=== PATIENT | female | born 1965 | race Caucasian/White ===

== ENCOUNTER 2017-08-07 18:03 | Emergency (ER) | payer BC ==
[2017-08-07 18:12] VITALS: BP 116/66
--- NOTE | 2017-08-07 18:28 | UC ---
Skin Complaint HPI - HPI Summary HPI Summary: small tick on left clavical she noticed in the shower this morning-removed it her self with tweezer may have been attached for over 24 hours - History of Current Complaint Chief Complaint: UCSkin Time Seen by Provider: 08/07/17 18:21 Stated Complaint: TICK BITE Hx Obtained From: Patient Hx Last Menstrual Period: FELIPE MENOPAUSAL ?: No Onset/Duration: Sudden Onset, Lasting Hours - over 24 doesnot believe in was over 26 hours Timing: Constant Current Severity: None Location: Discrete - left clavicle Aggravating Factor(s): Nothing Alleviating Factor(s): Nothing Associated Signs & Symptoms: Positive: Negative Related History: Insect Bite/Sting - Allergy/Home Medications Allergies/Adverse Reactions: Allergies Allergy/AdvReac Type Severity Reaction Status Date / Time Hydrocodone Allergy Intermediate Nausea Verified 09/16/16 16:42 Amoxicillin [From Augmentin] Allergy Hives Verified 08/07/17 18:13 Benzonatate [From Tessalon] Allergy Rash And Verified 09/19/16 07:11 Itching Clavulanic Acid Allergy Hives Verified 08/07/17 18:13 [From Augmentin] Fluticasone [From Flonase] Allergy Rash And Verified 09/19/16 07:11 Itching Sulfamethoxazole Allergy Rash And Verified 09/19/16 07:11 w/Trimethoprim Itching [From Bactrim] Review of Systems Constitutional: Negative Skin: Negative Eyes: Negative ENT: Negative Respiratory: Negative Cardiovascular: Negative Gastrointestinal: Negative Genitourinary: Negative Motor: Negative Neurovascular: Negative Musculoskeletal: Negative Neurological: Negative Psychological: Negative Is Patient Immunocompromised?: No All Other Systems Reviewed And Are Negative: Yes PMH/Surg Hx/FS Hx/Imm Hx Previously Healthy: Yes - Surgical History Surgical History: Yes Surgery Procedure, Year, and Place: [place] teeth extraction at age 16 - Family History Known Family History: Positive: Cardiac Disease - [place], Other - breast cancer Negative: Blood Disorder - Social History Occupation: Employed Full-time Lives: With Family Alcohol Use: Weekly Alcohol Amount: one drink a week Substance Use Type: None Smoking Status (MU): Former Smoker Length of Time of Smoking/Using Tobacco: 10 years When Did the Patient Quit Smoking/Using Tobacco: Age 22 - Immunization History Most Recent Influenza Vaccination: never gets it Most Recent Tetanus Shot: up to date per patient Most Recent Pneumonia Vaccination: never Physical Exam Triage Information Reviewed: Yes Appearance: Well-Appearing, No Pain Distress, Well-Nourished Vital Signs: Initial Vital Signs Temp 99.3 F 08/07/17 18:09 Pulse 66 08/07/17 18:09 Resp 18 08/07/17 18:09 BP 116/66 08/07/17 18:09 Pulse Ox 100 08/07/17 18:09 Vital Signs Reviewed: Yes Eye Exam: Normal Eyes: Positive: Conjunctiva Clear ENT Exam: Normal ENT: Positive: Normal ENT inspection, Hearing grossly normal. Negative: Nasal congestion, Nasal drainage, Trismus, Muffled/hoarse voice Dental Exam: Normal Neck exam: Normal Neck: Positive: Supple, Nontender, No Lymphadenopathy Respiratory Exam: Normal Respiratory: Positive: Chest non-tender, Lungs clear, Normal breath sounds, No respiratory distress, No accessory muscle use Cardiovascular Exam: Normal Cardiovascular: Positive: RRR, No Murmur, Pulses Normal, Brisk Capillary Refill Musculoskeletal Exam: Normal Musculoskeletal: Positive: Strength Intact, ROM Intact, No Edema Neurological Exam: Normal Neurological: Positive: Alert, Muscle Tone Normal Psychological Exam: Normal Skin Exam: Normal Course/Dx - Course Course Of Treatment: Doxycycine 200mg times 1 now, be observent for s/s of Lyme disease-follow with pcp - Differential Diagnoses - Skin Complaint Differential Diagnoses: Tick Born Illness - Diagnoses Provider Diagnoses: Lyme PEP Discharge - Discharge Plan Condition: Stable Disposition: HOME Patient Education Materials: Tick Bite (ED) Referrals: Adan Javier MD [Primary Care Provider] - If Needed
[2017-08-07] MEDS ORDERED: DOXYcycline CAP(*) 100 MG PO ONE (18:29)
== END 2017-08-07 18:40 | disposition home or self-care (01) ==
LOC: UCEAST 18:03
DX: S40.262A Insect bite (nonvenomous) of left shoulder, initial encounter (principal); W57.XXXA Bitten or stung by nonvenomous insect and other nonvenomous arthropods, initial encounter; Y93.9 Activity, unspecified; Y92.9 Unspecified place or not applicable; Z88.1 Allergy status to other antibiotic agents; Z88.5 Allergy status to narcotic agent; Z88.2 Allergy status to sulfonamides; Z88.8 Allergy status to other drugs, medicaments and biological substances; Z87.891 Personal history of nicotine dependence
CPT/HCPCS: 99212; A9270-GY; G0463

== ENCOUNTER 2018-04-02 12:33 | Emergency (ER) | payer BC ==
--- NOTE | 2018-04-02 13:23 | UC ---
Complaint Female HPI - HPI Summary HPI Summary: Patient is a 52-year-old otherwise healthy perimenopausal female presenting to the with chief complaint of left-sided swollen lymph nodes to the groin area , left-sided labial erythema with some swelling with mild amount of itching, diffuse low back pain yesterday which has improved today, and low-grade temp 101.1 at home. She endorses unprotected sex with new partner 4 months ago but last encounter was over 6 weeks ago. History of STDs years ago, but none recently. Recently tested for HIV and negative. Symptoms began 2 days ago and have remained constant. Aggravated by nothing and alleviated with nothing. She has been taking ibuprofen and Tylenol for fever, without relief of symptoms. 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 Denies any burning, urgency, frequency with urination. She gets an annual through her [employer] yearly with no abnormal findings. Patient is a former smoker and occasionally drinks ETOH. No drug use. - History Of Current Complaint Chief Complaint: UCGU Stated Complaint: PERSONAL Time Seen by Provider: 04/02/18 12:51 Hx Obtained From: Patient Hx Last Menstrual Period: FELIPE MENOPAUSAL ?: No Onset/Duration: Sudden Onset Timing: Constant Severity Initially: Mild Severity Currently: Mild Pain Intensity: 1 Pain Scale Used: 0-10 Numeric Character: Not Applicable Aggravating Factor(s): Nothing Alleviating Factor(s): Nothing Associated Signs And Symptoms: Positive: Genital Swelling - labia majora with mild swelling and erythema - Risk Factors Ectopic Risk Factor: Negative Ovarian Torsion Risk Factor: Reproductive Age - Allergies/Home Medications Allergies/Adverse Reactions: Allergies Allergy/AdvReac Type Severity Reaction Status Date / Time amoxicillin [From Augmentin] Allergy Hives Verified 04/02/18 12:45 benzonatate Allergy Rash And Verified 04/02/18 12:45 [From Tessalon Perles] Itching clavulanic acid Allergy Hives Verified 04/02/18 12:45 [From Augmentin] fluticasone [From Flonase] Allergy Rash And Verified 04/02/18 12:45 Itching hydrocodone Allergy Nausea And Verified 04/02/18 12:45 Vomiting Sulfa (Sulfonamide Allergy Rash And Verified 04/02/18 12:45 Antibiotics) Itching PMH/Surg Hx/FS Hx/Imm Hx Previously Healthy: Yes - Surgical History Surgical History: Yes Surgery Procedure, Year, and Place: [place] teeth extraction at age 16 - Family History Known Family History: Positive: Cardiac Disease - [place], Other - breast cancer Negative: Blood Disorder - Social History Occupation: Employed Full-time Lives: Alone Alcohol Use: Occasionally Alcohol Amount: one drink a week Substance Use Type: None Smoking Status (MU): Former Smoker Length of Time of Smoking/Using Tobacco: 10 years When Did the Patient Quit Smoking/Using Tobacco: Age 22 - Immunization History Most Recent Influenza Vaccination: never gets it Most Recent Tetanus Shot: up to date per patient Most Recent Pneumonia Vaccination: never Review of Systems Constitutional: Fever, Chills, Fatigue Skin: Other - erythema and swelling to the L labia majora Respiratory: Negative Cardiovascular: Negative Gastrointestinal: Negative Genitourinary: Vaginal/Penile Itching - left labia Motor: Negative Neurovascular: Negative Neurological: Negative Psychological: Negative Is Patient Immunocompromised?: No All Other Systems Reviewed And Are Negative: Yes Physical Exam Triage Information Reviewed: Yes Appearance: Ill-Appearing - diaphoretic, Thin Vital Signs: Initial Vital Signs Temp 99.7 F 04/02/18 12:38 Pulse 94 04/02/18 12:38 Resp 18 04/02/18 12:38 BP 116/64 04/02/18 12:38 Pulse Ox 100 04/02/18 12:38 Vital Signs Reviewed: Yes Eye Exam: Normal Neck: Positive: Supple, No Lymphadenopathy, Enlarged Nodes @ - Left inguinal without evidence of hernia Respiratory: Positive: Lungs clear, Normal breath sounds Cardiovascular: Positive: RRR, No Murmur Pelvic Exam: Positive: Speculum Exam Normal, No Masses, Lesions - erythema with slight swelling to the L labia majora. Negative: Cervicitis Musculoskeletal Exam: Normal Musculoskeletal: Positive: Strength Intact Neurological Exam: Normal Neurological: Positive: Alert Psychological Exam: Normal Skin Exam: Normal Complaint Female Dx - Course Course Of Treatment: On arrival, patient is 99.7, normal respirations, normal heart rate and other vital signs stable. Discussed obtaining swabs for STDs, bacterial vaginosis and yeast. I have explained to the patient we do not have the ability for lab work. On physical examination, left sided groin enlarged LN. No enlarged LN to the right groin. No abdominal pain in all quadrants on deep palpation. No CVA tenderness bilaterally. On pelvic examination, there is left labial erythema and slight swelling with no evidence of abscess, vesicles or other open lesions. Patient states the area was pruritic yesterday , but feels improved today. Speculum examination reveals no copious discharge of color, no signs of yeast infection and no vaginal bleeding. She denies any pain with the speculum examination. Swabs obtained for GC/chlamydia and affirm. I have offered HIV testing, but patient declines stating she recently was tested and results were negative. UA obtained and WNL other than trace blood. Patient states she begins to feel warm again and vital signs are rechecked. Vital signs on recheck her heart rate 100, 99% on room air, resp 22 , 120/66, and temp is ranging between 103.6 and 104.2. At this time, I have suggested going to the ED for higher level of care. Patient is agreeable to this and will go directly from here to the ED. She declines ambulance. - Differential Dx/Diagnosis Differential Diagnosis/HQI/PQRI: Cervicitis, Pelvic Inflammatory Disease, Urinary Tract Infection Provider Diagnoses: Fever Discharge - Sign-Out/Discharge Documenting (check all that apply): Discharge/Admit/Transfer - Discharge Plan Condition: Stable Disposition: HOME Referrals: Adan Javier MD [Primary Care Provider] - Additional Instructions: Go directly to the ED - Billing Disposition and Condition Condition: STABLE Disposition: HOME
[2018-04-02 13:29] VITALS: BP 120/66
[2018-04-02] MEDS ORDERED: Acetaminophen TAB* 325 MG PO ONE (13:37)
== END 2018-04-02 13:44 | disposition home or self-care (01) ==
LOC: UCEAST 12:33
DX: R50.9 Fever, unspecified (principal); R59.9 Enlarged lymph nodes, unspecified; Z88.1 Allergy status to other antibiotic agents; Z88.5 Allergy status to narcotic agent; Z88.0 Allergy status to penicillin; Z88.2 Allergy status to sulfonamides; Z88.8 Allergy status to other drugs, medicaments and biological substances; Z82.49 Family history of ischemic heart disease and other diseases of the circulatory system; Z80.3 Family history of malignant neoplasm of breast; Z87.891 Personal history of nicotine dependence
CPT/HCPCS: 81003; 87480; 87491; 87510; 87591; 87661; 99213; A9270-GY; G0463

== ENCOUNTER 2018-04-02 14:03 | Emergency (ER) | payer BC ==
[2018-04-02] MEDS ORDERED: NS 0.9% 1000 ML*IV.FLUID IV ONE (15:50)
[2018-04-02 15:58] LABS: ABS Basophils 0 10^3/ul (0-0.2); ABS Eosinophils 0 10^3/ul (0-0.6); ABS Lymphocytes 0.8 10^3/ul (1.0-4.8); ABS Monocytes 0.4 10^3/ul (0-0.8); ABS Neutrophils 4.4 10^3/ul (1.5-7.7); ABS Nucleated RBC 0 10^3/ul; Eosinophil % 0.2 % (0-6); Hematocrit 41 % (35-47); Hemoglobin 13.9 g/dl (12.0-16.0); Lymphocyte % 14.3 % (25-47); Mean Corpuscular HGB Conc 34 g/dl (31-36); Mean Corpuscular Hemoglobin 31 pg (27-31); Mean Corpuscular Volume 92 fL (80-97); Mean Platelet Volume 10.2 um3 (7.4-10.4); Nucleated Red Blood Cells % 0.2; Platelet Count 160 10^3/ul (150-450); Red Blood Count 4.44 10^6/ul (4.0-5.4); Red Cell Distribution Width 13 % (10.5-15); White Blood Count 5.6 10^3/ul (3.5-10.8)
[2018-04-02 16:08] LABS: INR 0.95 (0.77-1.02)
[2018-04-02] MEDS ORDERED: DOXYcycline CAP(*) 100 MG PO ONE (16:31)
[2018-04-02 18:41] VITALS: BP 106/62
--- NOTE | 2018-04-15 06:09 | ED ---
Skin Complaint - HPI Summary HPI Summary: Pt here w/ Lt labial redness, swelling over the past few days. Fever. 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 She denies any pain or irritation in this area that she would expect from riding her bicycle. She also denies dysuria, urinary frequency, flank pain , abdominal pain, nausea, vomiting, abdominal pain/pelvic pain, vaginal irritation or discharge. States she has not been sexually active in quite a while. She is outdoors quite a bit but denies unwitnessed tick bite in this area - may have had tick bites in the past. Denies headache, joint stiffness, chest pain, palpitations, numbness, tingling, weakness, headaches. - History of Current Complaint Chief Complaint: EDOBProblems Time Seen by Provider: 04/02/18 15:43 Stated Complaint: TRANSFER FROM /FEELING FAINT Hx Obtained From: Patient Hx Last Menstrual Period: FELIPE MENOPAUSAL Pain Intensity: 0 Pain Scale Used: 0-10 Numeric - Allergy/Home Medications Allergies/Adverse Reactions: Allergies Allergy/AdvReac Type Severity Reaction Status Date / Time amoxicillin [From Augmentin] Allergy Hives Verified 04/02/18 14:16 benzonatate Allergy Rash And Verified 04/02/18 14:16 [From Tessalon Perles] Itching clavulanic acid Allergy Hives Verified 04/02/18 14:16 [From Augmentin] fluticasone [From Flonase] Allergy Rash And Verified 04/02/18 14:16 Itching hydrocodone Allergy Nausea And Verified 04/02/18 14:16 Vomiting Sulfa (Sulfonamide Allergy Rash And Verified 04/02/18 14:16 Antibiotics) Itching PMH/Surg Hx/FS Hx/Imm Hx Previously Healthy: Yes Endocrine/Hematology History: Denies: Hx Anticoagulant Therapy, Hx Blood Disorders, Hx Diabetes, Hx Thyroid Disease Cardiovascular History: Reports: Hx Angina Denies: Hx Coronary Artery Disease, Hx Hypercholesterolemia, Hx Hypertension , Hx Myocardial Infarction, Hx Pacemaker/ICD, Hx Valvular Heart Disease Respiratory History: Denies: Hx Asthma, Hx Chronic Obstructive Pulmonary Disease (COPD) GI History: Denies: Hx Ulcer Sensory History: Reports: Hx Hearing Aid - will remove Psychiatric History: Denies: Hx Panic Disorder - Cancer History Hx Chemotherapy: No Hx Radiation Therapy: No - Surgical History Surgery Procedure, Year, and Place: [place] teeth extraction at age 16 - Immunization History Date of Tetanus Vaccine: PT STATES UNSURE Date of Influenza Vaccine: NONE Infectious Disease History: No Infectious Disease History: Denies: Hx Clostridium Difficile, Hx Hepatitis, Hx Human Immunodeficiency Virus (HIV), Hx of Known/Suspected MRSA, Hx Shingles, Hx Tuberculosis, Hx Known/ Suspected VRE, Hx Known/Suspected VRSA, History Other Infectious Disease, Traveled Outside the [place] in Last 30 Days - Family History Known Family History: Positive: Cardiac Disease - [place], Other - breast cancer Negative: Blood Disorder - Social History Alcohol Use: Occasionally Alcohol Amount: one drink a week Hx Substance Use: No Substance Use Type: Reports: None Hx Tobacco Use: Yes - not currently Smoking Status (MU): Former Smoker Length of Time of Smoking/Using Tobacco: 10 years Review of Systems Positive: Fever. Negative: Chills, Fatigue Eyes: Negative ENT: Negative Cardiovascular: Negative Respiratory: Negative Gastrointestinal: Negative Genitourinary: Negative Musculoskeletal: Negative Positive: Rash Neurological: Negative Psychological: Normal All Other Systems Reviewed And Are Negative: Yes Physical Exam Triage Information Reviewed: Yes Vital Signs On Initial Exam: Initial Vitals Temp Pulse Resp BP Pulse Ox 100.8 F 94 16 108/60 98 04/02/18 14:16 04/02/18 14:16 04/02/18 14:16 04/02/18 14:16 04/02/18 14:16 Vital Signs Reviewed: Yes Appearance: Positive: Well-Appearing, No Pain Distress, Thin Skin: Positive: Warm, Skin Color Reflects Adequate Perfusion, Dry - erythematous macular rash over Lt labia - borders are well defined and complete a ring from about the labia and back into part of the gluteus - clearing w/ central dark area - no entrance wound or signs of remnants of insects, no vesicles, no skin breakdown/fissuring and no d/c Head/Face: Positive: Normal Head/Face Inspection Eyes: Positive: Normal, EOMI ENT: Positive: Normal ENT inspection, Hearing grossly normal, Pharynx normal - mucosa moist Neck: Positive: Supple, Nontender, No Lymphadenopathy Respiratory/Lung Sounds: Positive: Clear to Auscultation, Breath Sounds Present Cardiovascular: Positive: Normal, Pulses are Symmetrical in both Upper and Lower Extremities. Negative: Leg Edema Left, Leg Edema Right Abdomen Description: Positive: Nontender, No Organomegaly, Soft. Negative: CVA Tenderness (R), CVA Tenderness (L), Distended, Guarding Bowel Sounds: Positive: Present Pelvic Exam: Positive: External Exam Normal - other than above - no d/c in vulvar area Musculoskeletal: Positive: Normal, Strength/ROM Intact Neurological: Positive: Normal, Sensory/Motor Intact, Alert, Oriented to Person Place, Time, CN Intact II-III Psychiatric: Positive: Normal Diagnostics - Vital Signs Vital Signs Temp Pulse Resp BP Pulse Ox 04/02/18 17:30 100.7 F 90 16 106/62 99 04/02/18 14:16 100.8 F 94 16 108/60 98 - Laboratory Lab Results: Lab Results 04/02/18 04/02/18 04/02/18 Range/Units 15:41 15:41 15:41 WBC 5.6 (3.5-10.8) 10^3/ul RBC 4.44 (4.0-5.4) 10^6/ul Hgb 13.9 (12.0-16.0) g/dl Hct 41 (35-47) % MCV 92 (80-97) fL MCH 31 (27-31) pg MCHC 34 (31-36) g/dl RDW 13 (10.5-15) % Plt Count 160 (150-450) 10^3/ul MPV 10.2 (7.4-10.4) um3 Neut % (Auto) 78.2 (38-83) % Lymph % (Auto) 14.3 L (25-47) % Alpine % (Auto) 6.7 (0-7) % Eos % (Auto) 0.2 (0-6) % Baso % (Auto) 0.6 (0-2) % Absolute Neuts (auto) 4.4 (1.5-7.7) 10^3/ul Absolute Lymphs (auto) 0.8 L (1.0-4.8) 10^3/ul Absolute Monos (auto) 0.4 (0-0.8) 10^3/ul Absolute Eos (auto) 0 (0-0.6) 10^3/ul Absolute Basos (auto) 0 (0-0.2) 10^3/ul Absolute Nucleated RBC 0 10^3/ul Nucleated RBC % 0.2 INR (Anticoag Therapy) 0.95 (0.77-1.02) APTT 32.2 (26.0-36.3) seconds Sodium 134 L (139-145) mmol/L Potassium 3.9 (3.5-5.0) mmol/L Chloride 102 (101-111) mmol/L Carbon Dioxide 25 (22-32) mmol/L Anion Gap 7 (2-11) mmol/L BUN 20 (6-24) mg/dL Creatinine 1.06 H (0.51-0.95) mg/dL Est GFR ( Amer) 69.5 (>60) Est GFR (Non-Af Amer) 54.0 (>60) BUN/Creatinine Ratio 18.9 (8-20) Glucose 114 H (70-100) mg/dL Lactic Acid (0.5-2.0) mmol/L Calcium 9.0 (8.6-10.3) mg/dL Total Bilirubin 0.30 (0.2-1.0) mg/dL AST 31 (13-39) U/L ALT 26 (7-52) U/L Alkaline Phosphatase 81 (34-104) U/L Troponin I 0.00 (<0.04) ng/mL C-Reactive Protein 11.96 H (< 5.00) mg/L Total Protein 7.4 (6.4-8.9) g/dL Albumin 4.2 (3.2-5.2) g/dL Globulin 3.2 (2-4) g/dL Albumin/Globulin Ratio 1.3 (1-3) Monoscreen Negative (Negative) 04/02/18 Range/Units 15:41 WBC (3.5-10.8) 10^3/ul RBC (4.0-5.4) 10^6/ul Hgb (12.0-16.0) g/dl Hct (35-47) % MCV (80-97) fL MCH (27-31) pg MCHC (31-36) g/dl RDW (10.5-15) % Plt Count (150-450) 10^3/ul MPV (7.4-10.4) um3 Neut % (Auto) (38-83) % Lymph % (Auto) (25-47) % Alpine % (Auto) (0-7) % Eos % (Auto) (0-6) % Baso % (Auto) (0-2) % Absolute Neuts (auto) (1.5-7.7) 10^3/ul Absolute Lymphs (auto) (1.0-4.8) 10^3/ul Absolute Monos (auto) (0-0.8) 10^3/ul Absolute Eos (auto) (0-0.6) 10^3/ul Absolute Basos (auto) (0-0.2) 10^3/ul Absolute Nucleated RBC 10^3/ul Nucleated RBC % INR (Anticoag Therapy) (0.77-1.02) APTT (26.0-36.3) seconds Sodium (139-145) mmol/L Potassium (3.5-5.0) mmol/L Chloride (101-111) mmol/L Carbon Dioxide (22-32) mmol/L Anion Gap (2-11) mmol/L BUN (6-24) mg/dL Creatinine (0.51-0.95) mg/dL Est GFR ( Amer) (>60) Est GFR (Non-Af Amer) (>60) BUN/Creatinine Ratio (8-20) Glucose (70-100) mg/dL Lactic Acid 1.0 (0.5-2.0) mmol/L Calcium (8.6-10.3) mg/dL Total Bilirubin (0.2-1.0) mg/dL AST (13-39) U/L ALT (7-52) U/L Alkaline Phosphatase (34-104) U/L Troponin I (<0.04) ng/mL C-Reactive Protein (< 5.00) mg/L Total Protein (6.4-8.9) g/dL Albumin (3.2-5.2) g/dL Globulin (2-4) g/dL Albumin/Globulin Ratio (1-3) Monoscreen (Negative) Result Diagrams: 04/02/18 15:41 04/02/18 15:41 Lab Statement: Any lab studies that have been ordered have been reviewed, and results considered in the medical decision making process. Course/Dx - Course Course Of Treatment: Suspect EM rash from Lyme dz. Will start doxycycline and have pt f/u. Discussed other s/sx to monitor. - Diagnoses Provider Diagnoses: Erythema migrans (Lyme disease) Discharge - Sign-Out/Discharge Documenting (check all that apply): Discharge/Admit/Transfer - Discharge Plan Condition: Stable Disposition: HOME Prescriptions: DOXYcycline CAP(*) [DOXYcycline 100MG CAP(*)] 100 mg PO BID #42 cap Patient Education Materials: Lyme Disease (ED) Referrals: Ken GUTIERREZ,Ganesh Hercules [Medical Doctor] - Additional Instructions: It is clinically suspected that you have an erythema migrans rash which is produced by Lyme disease. You'll be started on doxycycline and finish the course over 21 day period. It is important a follow-up with infectious disease specialist in the event they need further treatment or testing. You may call today to schedule follow-up. *If in the meantime you develop worsening of fever, headache, neck pain or stiffness, chest pain or palpitations, numbness, tingling, weakness, return to the emergency department. NOTE: your vaginal swabs will not be ready for another few days. If you have positive findings, you will receive a call. If you have not heard anything and you want to double check, you may call the ED at - Billing Disposition and Condition Condition: STABLE Disposition: Home
== END 2018-04-02 17:30 | disposition home or self-care (01) ==
LOC: ED 14:03
DX: A69.20 Lyme disease, unspecified (principal)
CPT/HCPCS: 36415; 80053; 83605; 84484; 85025; 85610; 85730; 86140; 86308; 87040; 93005; 99283; A9270-GY